=== PATIENT | male | born 1985 | race Caucasian/White ===

== ENCOUNTER 2021-08-30 17:58 | Emergency (ER) | payer OTHER ==
[~2021-08-30] VITALS: Ht 170.2 cm; Wt 74.8 kg
[2021-08-30] MEDS ORDERED: oxyCODONE IR 5 MG TABLET PO ONE (20:00)
[2021-08-30 20:30] VITALS: BP 106/66
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
[2021-08-30] MEDS ORDERED: oxyCODONE/APAP 7.5/325 1 TAB TABLET PO ONE (20:45)
== END 2021-08-30 20:51 | disposition home or self-care (01) ==
LOC: ER 17:58
DX: S22.32XA Fracture of one rib, left side, initial encounter for closed fracture (principal); S22.31XA Fracture of one rib, right side, initial encounter for closed fracture; F17.200 Nicotine dependence, unspecified, uncomplicated; V49.9XXA Car occupant (driver) (passenger) injured in unspecified traffic accident, initial encounter; Y93.89 Activity, other specified; Y92.488 Other paved roadways as the place of occurrence of the external cause; Y99.8 Other external cause status
CPT/HCPCS: 99281; 99283